=== PATIENT | male | born 1960 | race Caucasian/White ===

== ENCOUNTER → 2016-12-01 | Outpatient (CLI) | payer OTHER | LOC: COL.RAD 11:32 | DX: K43.9 Ventral hernia without obstruction or gangrene (principal); G89.18 Other acute postprocedural pain; Z86.010 Personal history of colon polyps | CPT/HCPCS: Q9967 ==

== ENCOUNTER → 2019-10-11 | Outpatient (CLI) | payer OTHER | LOC: COL.RAD 09:19 | DX: M47.817 Spondylosis without myelopathy or radiculopathy, lumbosacral region (principal); M41.85 Other forms of scoliosis, thoracolumbar region; M43.17 Spondylolisthesis, lumbosacral region ==

== ENCOUNTER → 2020-06-17 | Outpatient (CLI) | payer OTHER ==
[~2020-06-17] VITALS: Ht 175.3 cm; Wt 112.8 kg
[~2020-06-17] MED LIST: CRESTOR20 MG PO; GLUCOPHAGE1000 MG PO; MOTRIN 800800 MG/TAB PO; NEURONTIN300 MG/CAP PO; PRILOSEC 20MG20 MG PO; PRINIVIL40 MG PO; TOPROL XL 50MG50 MG PO; TYLENOL 500MG500 MG PO
== END ==
LOC: COL.RAD 12:17
DX: M54.5 Low back pain (principal); Z98.1 Arthrodesis status

== ENCOUNTER → 2021-12-22 | Outpatient (CLI) | payer OTHER ==
[2021-12-22] VITALS (11 sets, daily range): BP systolic 135–170; BP diastolic 79–105; PULSE 55–62; TEMP 98
[~2021-12-22] MED LIST changes: +ANTIVERT 25MG25 MG PO; +HCTZ 25MG TAB25 MG PO; +NORCO 325 MG-7.1 TAB PO; +TOPROL XL200 MG PO
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
== END ==
LOC: COL.RAD 06:57
DX: C79.9 Secondary malignant neoplasm of unspecified site (principal); R91.1 Solitary pulmonary nodule; M79.89 Other specified soft tissue disorders
CPT/HCPCS: J3010